=== PATIENT | female | born 2000 | race Asian ===

== ENCOUNTER 2019-06-15 12:56 | Inpatient (IN) | payer OTHER, MEDICAID ==
[~2019-06-15] VITALS: Ht 160 cm; Wt 64.0 kg
--- NOTE | 2019-06-15 12:58 | NUR ---
PATIENT TO BED 3 BY EMS AT THIS TIME.
[2019-06-15 12:59] VITALS: BP 147/101
[2019-06-15] MEDS ORDERED: MECLIZINE 25 MG TAB PO ONE (13:20)
[2019-06-15] MEDS ORDERED: NACL 0.9% 1,000 ML IV ONE ×3 (13:20→17:20)
--- NOTE | 2019-06-15 13:30 | NUR ---
18/F [place] from [facility] for evaluation of N/V and dizziness that started yesterday. Pt is AOX4, clear speech. No active vomiting noted at this time but c/o nausea.
--- NOTE | 2019-06-15 14:29 | NUR ---
AMBULATORY TO RESTROOM WITH RN ASSITANCE. REPORTING MILD DIZINESS POST MECLIZINE ADMIN.
[2019-06-15] MEDS ORDERED: ONDANSETRON 4 MG/2 ML VIAL IVP ONE (14:35)
--- NOTE | 2019-06-15 15:30 | NUR ---
MEDICATED ORDERED. WILL CONTINUE TO MONITOR.
--- NOTE | 2019-06-15 17:15 | NUR ---
ATTEMPTED TO AMBULATE PT TO RESTROOM. UNSTEADY GAIT NOTED. AMBULATED BACK TO BED WITH RN ASSISTANCE. MD AWARE. ORDERS TO FOLLOW.
[2019-06-15] MEDS ORDERED: LORazepam 2 MG/ML VIAL IVP ONE (17:20)
[2019-06-15 18:03] LABS: BASOPHILS % (AUTO) 0.1 % (0.0-2.0); EOSINOPHILS % (AUTO) 0.2 % (0.0-4.0); HEMATOCRIT 37.3 % (36-48); HEMOGLOBIN 12.2 g/dL (12.0-16.0); LYMPHOCYTES # (AUTO) 2.3 K/uL (2.5-16.5); LYMPHOCYTES % (AUTO) 22.6 % (20.5-51.1); MEAN CORPUSCULAR HEMOGLOBIN 30 pg (27-31); MEAN CORPUSCULAR HGB CONC 33 g/dL (33-37); MEAN CORPUSCULAR VOLUME 93.2 fL (80-94); MONOCYTES # (AUTO) 0.5 K/uL (0.8-1.0); MONOCYTES % (AUTO) 5.2 % (1.7-9.3); NEUTROPHILS # (AUTO) 7.4 K/uL (1.8-7.7); NEUTROPHILS % (AUTO) 71.9 % (42.2-75.2); PLATELET COUNT (AUTO) 289 K/uL (140-450); RED BLOOD CELL COUNT(AUTO) 4.01 MIL/uL (4.20-5.40); RED CELL DISTRIBUTION WIDTH 12.3 % (11.6-13.7); WHITE BLOOD COUNT (AUTO) 10.3 K/uL (4.5-11.0)
--- NOTE | 2019-06-15 18:05 | NUR ---
TO CT VIA [facility].
[2019-06-15 18:10] LABS: ANION GAP 13.3 (8-16); CARBON DIOXIDE 24.4 mmol/L (21-32); CREATININE 0.6 mg/dL (0.6-1.3); POTASSIUM 3.7 mmol/L (3.5-5.1)
[2019-06-15 18:16] LABS: ALBUMIN 3.4 g/dL (3.4-5.0); TOTAL BILIRUBIN 0.3 mg/dL (0.0-1.0)
--- NOTE | 2019-06-15 19:07 | NUR ---
REPORT GIVEN TO DEENA ISSA. ALL CARE TRANSFERRED AT THIS TIME.
--- NOTE | 2019-06-15 20:28 | NUR ---
PATIENT IS SLEEPING AT THIS TIME AND IN NO DISTRESS.
--- NOTE | 2019-06-15 22:33 | NUR ---
PATIENT IS QUIET AND EASILY AROUSABLE TO NAME. BLOOD GLUCOSE 74MG/DL. WILL CONTINUE TO MONITOR.
--- NOTE | 2019-06-15 22:44 | NUR ---
RECEIVED CALL FROM PT'S BROTHER NAS. PER PT, ALL MEDICAL INFORMATION CAN BE DISCUSSED WITH PT'S BROTHER. CALL TRANSFERRED TO PT'S PRIMARY RN
--- NOTE | 2019-06-15 22:55 | NUR ---
RECEIVED CALL FROM PATIENT'S BROTHER, NAS. UPDATED STATUS. PATIENT IS QUIET AND ALERT. PATIENT STATES "I FEEL TIRED." WILL CONTINUE TO MONITOR.
[2019-06-16] MEDS ORDERED: ACETAMINOPHEN 325 MG TAB PO PRN (01:10)
[2019-06-16] MEDS ORDERED: HYDROcodone/APAP 7.5/325 MG 1 TAB PO PRN (01:10)
--- NOTE | 2019-06-16 01:30 | NUR ---
PATIENT IS SLEEPING AT THIS TIME AND IN NO DISTRESS. WILL CONTINUE TO MONITOR.
[2019-06-16 02:05] LABS: FREE T4 (FREE THYROXINE) 0.97 ng/dL (0.76-1.46); MAGNESIUM 1.8 mg/dL (1.8-2.4); THYROID STIMULATING HORMONE 0.25 uIU/mL (0.34-3.74)
--- NOTE | 2019-06-16 02:05 | NUR ---
Patient will be admitted to care of Dr. Mckeon. Admited to Med/Surg. Will go to room . Belongings list completed. Report to DEENA MCCAULEY.
--- NOTE | 2019-06-16 02:05 | NUR ---
RECEIVED BEDSIDE REPORT FROM ER NURSE. PATIENT IS AWAKE AND COOPERATIVE. ADMITTING DIAGNOSIS VERTIGO ABNORMAL GAIT. RESPIRATION EVEN UNLABORED ON ROOM AIR. NO DISTRESS NOTED. SKIN IS WARM AND DRY. IV PATENT AND INTACT. DENIES PAIN. HEART RATE REGULAR. S1&S2 NOTED. ABDOMEN SOFT AND NON-TENDER. BOWEL SOUNDS PRESENT IN ALL 4 QUADRANTS. LAST BM 06/15/19. MRSA SCREEN DONE. VITALS WERE TAKEN. ORIENT PATIENT TO ROOM, STAFF, AND CALL LIGHT. ALL SAFETY MEASURES IN PLACE. BED IS AT LOW POSITION. CALL LIGHT WITHIN REACH AND VERBALIZES ITS USE. WILL CONTINUE TO MONITOR.
[2019-06-16 02:13] LABS: PROTHROMBIN TIME 10.3 secs (10.8-13.4)
[2019-06-16] MEDS ORDERED: PSEUDOEPHEDRINE 30 MG TAB PO SCH (02:30)
[2019-06-16] MEDS ORDERED: DIAZEPAM 2 MG TAB PO SCH (02:30)
--- NOTE | 2019-06-16 02:30 | NUR ---
AMBULATE PATIENT TO THE BATHROOM.
[2019-06-16 02:40] VITALS: BP 105/62
--- NOTE | 2019-06-16 04:30 | NUR ---
ALL SCHEDULED MEDS GIVEN PER ORDER. WILL CONTINUE TO MONITOR.
[2019-06-16] MEDS: MECLIZINE 25 MG TAB PO SCH ×3 (04:33→21:02)
[2019-06-16] MEDS: DEXT 5% / NACL 0.9% 500 ML IV SCH ×4 (04:33→21:07)
--- NOTE | 2019-06-16 05:24 | NUR ---
ORTHOSTATIC BP TAKEN. LYING BP 116/79. SITTING B/P 118/78. STANDING B/P 109/72. PT. IS STABLE. BED LOW POSITIN, 2 SIDERAILS UP AND CALL LIGHT WITHIN REACH.
--- NOTE | 2019-06-16 07:23 | NUR ---
ENDORSED PATIENT TO DAY SHIFT NURSE. PATIENT IN STABLE CONDITION.
--- NOTE | 2019-06-16 07:38 | NUR ---
RECEIVED HAND OFF REPORT FROM PM RN PT APPEARS STABLE AND IN NO APPARENT DISTRESS. ALL SAFETY MEASURES ARE IN PLACE WILL CONTINUE TO MONITOR,
--- NOTE | 2019-06-16 08:05 | NUR ---
ASSISTED PT TO BATHROOM PT UNSTEADY GAIT. ATTEMPTED TO COLLECT URINE SPECIMEN. STUDENT RN FLUSHED THE URINE FROM COLLECTION BEFORE ABLE TO PLACE IN SAMPLE CUP. WILL ATTEMPT AGAIN LATER
[2019-06-16 08:45] VITALS: BP 167/66
--- NOTE | 2019-06-16 08:45 | NUR ---
PT TAKEN OFF THE UNIT FOR CHEST XRAY. PT SALINE LOCKED
--- NOTE | 2019-06-16 09:15 | NUR ---
PT BACK ON THE UNIT ASSISTED PT BACK IN BED. PT CONNECTED BACK TO THE IV IV SITE FLUSHED AND PATENT ALL SAFETY MEASURES ARE IN PLACE WILL CONTINUE TO MONITOR.
[2019-06-16] MEDS: CALCIUM CARB/VIT-D 500 MG/200 IU 1 TAB PO SCH (09:23)
[2019-06-16] MEDS: DOCUSATE SODIUM 100 MG GELCAP PO SCH ×2 (09:23→21:01)
--- NOTE | 2019-06-16 09:35 | NUR ---
PATIENT HAS BEEN SCREENED AND CATEGORIZED LOW NUTRITION RISK. PATIENT WILL BE SEEN WITHIN 7 DAYS OF ADMISSION. 06/23/[address]
--- NOTE | 2019-06-16 11:26 | NUR ---
FREQUENT ROUNDING ON PT PT APPEARS STABLE AND IN NO APPARENT DISTRESS, ALL SAFETY MEASURES ARE IN PLACE WILL CONTINUE TO MONITOR.
[2019-06-16 11:40] LABS: BASOPHILS % (AUTO) 0.3 % (0.0-2.0); EOSINOPHILS # (AUTO) 0.1 K/uL (0-0.4); EOSINOPHILS % (AUTO) 0.8 % (0.0-4.0); HEMATOCRIT 37.8 % (36-48); HEMOGLOBIN 12.5 g/dL (12.0-16.0); LYMPHOCYTES # (AUTO) 1.7 K/uL (2.5-16.5); MEAN CORPUSCULAR HEMOGLOBIN 31 pg (27-31); MEAN CORPUSCULAR HGB CONC 33 g/dL (33-37); MONOCYTES # (AUTO) 0.5 K/uL (0.8-1.0); MONOCYTES % (AUTO) 7.2 % (1.7-9.3); NEUTROPHILS # (AUTO) 4.2 K/uL (1.8-7.7); NEUTROPHILS % (AUTO) 65.7 % (42.2-75.2); PLATELET COUNT (AUTO) 276 K/uL (140-450); RED BLOOD CELL COUNT(AUTO) 4.07 MIL/uL (4.20-5.40); RED CELL DISTRIBUTION WIDTH 12.4 % (11.6-13.7); WHITE BLOOD COUNT (AUTO) 6.4 K/uL (4.5-11.0)
[2019-06-16 12:11] LABS: ANION GAP 13.3 (8-16); CARBON DIOXIDE 25.2 mmol/L (21-32); CREATININE 0.6 mg/dL (0.6-1.3); POTASSIUM 3.5 mmol/L (3.5-5.1)
--- NOTE | 2019-06-16 13:34 | NUR ---
ASSISTED PT TO BATHROOM PT AMBULATED PT GAIT IS IMPROVING PT STATED THAT HER DIZZINESS IS IMPROVING,
[2019-06-16 14:46] LABS: APPEARANCE,URINE CLEAR (CLEAR); BILIRUBIN,URINE NEGATIVE (NEGATIVE); BLOOD, URINE NEGATIVE (NEGATIVE); COLOR,URINE YELLOW (YELLOW); LEUKOCYTE ESTERASE ,URINE 1+ (NEGATIVE); NITRITE, URINE NEGATIVE (NEGATIVE); PH,URINE 7.5 (5.0-9.0); UGLUCOSE NEGATIVE (NEGATIVE)
[2019-06-16 15:31] LABS: BARBITURATE, URINE NEG. ng/ml (NEG <=200); BENZODIAZEPINE, URINE NEG. ng/mL (NEG <=200); CANNABINOID, URINE NEG. ng/mL (NEG <=50); COCAINE, URINE NEG. ng/mL (NEG <=300); OPIATE, URINE NEG. ng/mL (NEG <=2000); PHENCYCLIDINE SCREEN,URINE NEG. ng/mL (NEG <=25)
--- NOTE | 2019-06-16 15:43 | NUR ---
FREQUENT ROUNDING ON PT PT APPEARS STABLE AND IN NO APPARENT DISTRESS. ALL SAFETY MEASURES ARE IN PLACE WILL CONTINUE TO MONITOR.
[2019-06-16 16:05] VITALS: BP 122/71
--- NOTE | 2019-06-16 17:20 | NUR ---
FREQUENT ROUNDING ON PT PT APPEARS STABLE AND IN NO APPARENT DISTRESS. ALL SAFETY MEASURES ARE IN PLACE WILL CONTINUE TO MONITOR.
[2019-06-16 17:21] LABS: MAGNESIUM 1.8 mg/dL (1.8-2.4); PHOSPHORUS 2.9 mg/dL (2.5-4.9)
--- NOTE | 2019-06-16 19:10 | NUR ---
ENDORSED PT TO PM RN PT APPEARS STABLE AND IN NO APPARENT DISTRESS. ALL SAFETY MEASURES ARE IN PLACE PT HAS FALL RISK MEASURES IN PLACE. IVF INFUSING IV SITE PATENT WITH NO SIGNS OF INFILTRATION OR INFUSION.
--- NOTE | 2019-06-16 19:21 | NUR ---
RECEIVED BEDSIDE REPORT FROM DAY SHIFT NURSE. PATIENT IS AWAKE, ALERT, AND COOPERATIVE. RESPIRATION EVEN UNLABORED ON ROOM AIR. NO DISTRESS NOTED. SKIN IS WARM AND DRY. IV PATENT AND INTACT. DENIES PAIN. PLAN OF CARE WAS DISCUSSED. ALL SAFETY MEASURES IN PLACE. BED IS AT LOW POSITION. CALL LIGHT WITHIN REACH AND VERBALIZES ITS USE. WILL CONTINUE TO MONITOR.
--- NOTE | 2019-06-16 20:00 | NUR ---
INITIAL ASSESSMENT DONE. VITALS WERE TAKEN. PATIENT IN STABLE CONDITION. FAMILY AT BEDSIDE. WILL CONTINUE TO MONITOR.
--- NOTE | 2019-06-16 21:00 | NUR ---
ALL SCHEDULED MEDS WERE GIVEN PER ORDER. NO ASE NOTED. WILL CONTINUE TO MONITOR.
[2019-06-17] VITALS: BP 114/74
--- NOTE | 2019-06-17 00:36 | NUR ---
VITALS WERE TAKEN. PATIENT IN STABLE CONDITION. NO DISTRESS NOTED. WILL CONTINUE TO MONITOR.
--- NOTE | 2019-06-17 02:37 | NUR ---
CHECKED PATIENT. PATIENT SLEEPING RESPIRATION EVEN UNLABORED ON ROOM AIR. NO DISTRESS NOTED. WILL CONTINUE TO MONITOR.
--- NOTE | 2019-06-17 04:15 | NUR ---
CHECKED PATIENT. PATIENT SLEEPING RESPIRATION EVEN UNLABORED ON ROOM AIR. NO DISTRESS NOTED. WILL CONTINUE TO MONITOR.
[2019-06-17] MEDS: MECLIZINE 25 MG TAB PO SCH ×3 (04:23→20:35)
[2019-06-17] MEDS: DEXT 5% / NACL 0.9% 500 ML IV SCH ×4 (04:24→23:34)
--- NOTE | 2019-06-17 07:20 | NUR ---
ENDORSED PATIENT TO DAY SHIFT NURSE FOR CONTINUITY OF CARE. PATIENT IN STABLE CONDITION
--- NOTE | 2019-06-17 07:34 | NUR ---
RECEIVED HAND OFF REPORT FROM PM RN PT APPEARS STABLE AND IN NO APPARENT DISTRESS. ALL SAFETY MEASURES ARE IN PLACE WILL CONTINUE TO MONITOR.
[2019-06-17 08:15] VITALS: BP 114/77
[2019-06-17] MEDS: DOCUSATE SODIUM 100 MG GELCAP PO SCH ×2 (08:21→20:34)
[2019-06-17] MEDS: CALCIUM CARB/VIT-D 500 MG/200 IU 1 TAB PO SCH (08:21)
--- NOTE | 2019-06-17 09:34 | NUR ---
FREQUENT ROUNDING ON PT PT APPEARS STABLE AND IN NO APPARENT DISTRESS. ALL SAFETY MEASURES ARE IN PLACE WILL CONTINUE TO MONITOR.
--- NOTE | 2019-06-17 11:34 | NUR ---
FREQUENT ROUNDING PT APPEARS STABLE AND IN NO APPARENT DISTRESS. ALL SAFETY MEASURES ARE IN PLACE WILL CONTINUE TO MONITOR
[2019-06-17 12:06] LABS: BASOPHILS % (AUTO) 0.3 % (0.0-2.0); EOSINOPHILS # (AUTO) 0.1 K/uL (0-0.4); EOSINOPHILS % (AUTO) 0.8 % (0.0-4.0); HEMATOCRIT 40.8 % (36-48); HEMOGLOBIN 13.3 g/dL (12.0-16.0); LYMPHOCYTES # (AUTO) 1.7 K/uL (2.5-16.5); LYMPHOCYTES % (AUTO) 25.9 % (20.5-51.1); MEAN CORPUSCULAR HEMOGLOBIN 30 pg (27-31); MEAN CORPUSCULAR HGB CONC 33 g/dL (33-37); MEAN CORPUSCULAR VOLUME 93.3 fL (80-94); MONOCYTES # (AUTO) 0.7 K/uL (0.8-1.0); MONOCYTES % (AUTO) 9.8 % (1.7-9.3); NEUTROPHILS # (AUTO) 4.2 K/uL (1.8-7.7); NEUTROPHILS % (AUTO) 63.2 % (42.2-75.2); PLATELET COUNT (AUTO) 296 K/uL (140-450); RED BLOOD CELL COUNT(AUTO) 4.37 MIL/uL (4.20-5.40); RED CELL DISTRIBUTION WIDTH 12.3 % (11.6-13.7); WHITE BLOOD COUNT (AUTO) 6.7 K/uL (4.5-11.0)
[2019-06-17 12:24] LABS: ANION GAP 11.3 (8-16); CARBON DIOXIDE 28.6 mmol/L (21-32); CREATININE 0.6 mg/dL (0.6-1.3); POTASSIUM 3.9 mmol/L (3.5-5.1)
[2019-06-17 12:30] LABS: CHOL/HDL RATIO 4.7 (1-4.5)
[2019-06-17 12:34] LABS: MAGNESIUM 1.7 mg/dL (1.8-2.4); PHOSPHORUS 3.2 mg/dL (2.5-4.9)
--- NOTE | 2019-06-17 13:46 | NUR ---
FREQUENT ROUNDING ON PT PT APPEARS STABLE AND IN NO APPARENT DISTRESS. ALL SAFETY MEASURES ARE IN PLACE WILL CONTINUE TO MONITOR
--- NOTE | 2019-06-17 15:55 | NUR ---
FREQUENT ROUNDING ON PT PT APPEARS STABLE AND IN NO APPARENT DISTRESS.
[2019-06-17 16:00] VITALS: BP 133/78
--- NOTE | 2019-06-17 19:37 | NUR ---
ENDORSED PT TO PM RN PT APPEARS STABLE AND IN NO APPARENT DISTRESS. ALL SAFETY MEASURES ARE IN PLACE. PT AWAKE SITTING IN CHAIR
--- NOTE | 2019-06-17 19:38 | NUR ---
RECD. SITTING ON CHAIR, AWAKE, A/OX4, RESPIRATION EVEN AND UNLABORED. IV OF LR INFUSING AT 80 ML/HR, LEFT HAND G22. STATED STILL FEELING DIZZY WHEN STANDING UP, INSTRUCTED TO CALL NURSE WHEN NEEDING HELP TO GO BACK TO BED AND AMBULATING TO THE BR. PLAN OF CARE FOR THE SHIFT DISCUSSED. VERBALIZED UNDERSTANDING. DENIES PAIN 0/10.
--- NOTE | 2019-06-17 20:00 | NUR ---
Patient's Plan of Care was discussed and reviewed with DESIGN ENGINEER: Shagufta MOMIN
--- NOTE | 2019-06-17 20:35 | NUR ---
STILL SITTING ON CHAIR, DUE PO MEDICATION GIVEN.
[2019-06-18] VITALS: BP 117/75
--- NOTE | 2019-06-18 | NUR ---
SLEEPING COMFORTABLY IN BED.
--- NOTE | 2019-06-18 03:00 | NUR ---
STILL SLEEPING COMFORTABLY IN BED.
[2019-06-18] MEDS: MECLIZINE 25 MG TAB PO SCH (05:00)
--- NOTE | 2019-06-18 05:30 | NUR ---
IV SALINE LOCK AT THE RIGHT AC INFILTRATED, TAKEN OUT.
[2019-06-18] MEDS: DEXT 5% / NACL 0.9% 500 ML IV SCH (05:40)
[2019-06-18] MEDS ORDERED: MECL-272 PO (06:29)
--- NOTE | 2019-06-18 07:00 | NUR ---
CONDITION REMAIN STABLE. SAFETY MAINTAINED DURING SHIFT. WILL ENDORSED TO AM SHIFT NURSE FOR CONTINUITY OF CARE.
--- NOTE | 2019-06-18 07:08 | NUR ---
RECEIVED REPORT FROM LUSTER REPAIRER NURSE. PT AAOX4. NO C/O PAIN AT THIS TIME. IV ON LT HAND 22 GA RUNNING IVF PER ORDER. RESPIRATIONS EVEN AND UNLABORED ON RA. ACTIVE BS, ABD SOFT. SKIN IS INTACT WARM TO TOUCH. REVIEWED POC WITH PT, PT VERBALIZED UNDERSTANDING.
[2019-06-18 07:16] LABS: MAGNESIUM 1.7 mg/dL (1.8-2.4); PHOSPHORUS 4.3 mg/dL (2.5-4.9)
[2019-06-18 07:19] LABS: ANION GAP 12.5 (8-16); BASOPHILS % (AUTO) 0.2 % (0.0-2.0); CARBON DIOXIDE 27.1 mmol/L (21-32); CREATININE 0.5 mg/dL (0.6-1.3); EOSINOPHILS # (AUTO) 0.1 K/uL (0-0.4); EOSINOPHILS % (AUTO) 1.5 % (0.0-4.0); HEMATOCRIT 38.3 % (36-48); HEMOGLOBIN 12.5 g/dL (12.0-16.0); LYMPHOCYTES # (AUTO) 2.5 K/uL (2.5-16.5); LYMPHOCYTES % (AUTO) 31.1 % (20.5-51.1); MEAN CORPUSCULAR HEMOGLOBIN 30 pg (27-31); MEAN CORPUSCULAR HGB CONC 33 g/dL (33-37); MEAN CORPUSCULAR VOLUME 93.2 fL (80-94); MONOCYTES # (AUTO) 0.8 K/uL (0.8-1.0); MONOCYTES % (AUTO) 10.1 % (1.7-9.3); NEUTROPHILS # (AUTO) 4.6 K/uL (1.8-7.7); NEUTROPHILS % (AUTO) 57.1 % (42.2-75.2); PLATELET COUNT (AUTO) 281 K/uL (140-450); POTASSIUM 3.6 mmol/L (3.5-5.1); RED CELL DISTRIBUTION WIDTH 12.2 % (11.6-13.7)
[2019-06-18] MEDS ORDERED: DEXT 5% /NACL 0.9% 1,000 ML IV SCH (07:45)
[2019-06-18 08:00] VITALS: BP 119/85
--- NOTE | 2019-06-18 08:00 | NUR ---
ASSISTED PT WITH AMBULATION TO RESTROOM. PT IS AMBULATING WITH STEADY GAIT. PT HAS PT EVALUATION SCHEDULED LATER TODAY.
[2019-06-18] MEDS: CALCIUM CARB/VIT-D 500 MG/200 IU 1 TAB PO SCH (09:36)
[2019-06-18] MEDS: DOCUSATE SODIUM 100 MG GELCAP PO SCH (09:36)
--- NOTE | 2019-06-18 09:36 | NUR ---
PT GIVEN MORNING MEDICATIONS, PT IS AWARE OF INDICATIONS AND POTENTIAL SIDE EFFECTS. PT AGREES WITH DISCHARGE ORDER. PARENTS AT BEDSIDE, QUESTIONS ANSWERED AND CLARIFIED.
--- NOTE | 2019-06-18 11:35 | NUR ---
PT HAS BEEN DISCHARGED. ALL PAPERWORK SIGNED, ALL QUESTIONS ANSWERED. PT IS AWARE AND VERBALIZED UNDERSTANDING THAT PRESCRIPTION WILL BE SENT TO [facility], ADDRESS PROVIDED TO PT. WRISTBANDS REMOVED. PT REFUSED WHEELCHAIR, AMBULATING WITH STEADY GAIT, FAMILY AT SIDE. PT IN STABLE CONDITION.
== END 2019-06-18 11:35 | disposition home or self-care (01) | DRG 48 ==
LOC: MED 12:56 → MMU 06-16 01:13 → MTU 06-16 01:51
PROVIDERS: ADMIT General Practice; ATTEND General Practice
DX: G90.8 Other disorders of autonomic nervous system (principal); E83.51 Hypocalcemia; H81.11 Benign paroxysmal vertigo, right ear; E86.0 Dehydration
CPT/HCPCS: 36415; 70450; 71046; 80048; 80053; 80305; 81001; 82150; 82948; 83036; 83690; 83735; 83880; 84100; 84439; 84443; 85025; 85610; 85730; 87081; 87086; 93005; 96361; 96374; 96375; 97161-GP; 99285; G0482; J0696; J2060; J2405; J7030; J7042; J7060; J8597